=== PATIENT | female | born 1980 | race African-American/Black ===

== ENCOUNTER 2017-07-09 17:00 | Observation (INO) | payer MEDICAID ==
[~2017-07-09] VITALS: Ht 170.2 cm; Wt 97.5 kg
[~2017-07-09 17:00] MED LIST: LISI-283
[2017-07-09 18:25] LABS: Basophils # (auto) 0 uL; Basophils % (auto) 0.3 % (0.0-2.0); Eosinophils # (auto) 0.2 uL; Hematocrit 37.1 % (36.0-46.0); Hemoglobin 12.2 g/dL (12.2-16.2); Lymphocytes # (auto) 2.6 uL; Lymphocytes % (auto) 22.8 % (10.0-50.0); Mean Corpuscular Hgb Conc. 32.8 g/dL (32.0-36.0); Mean Corpuscular Volume 79.2 fL (80.0-100.0); Mean Platelet Volume 9.1 fL (6.9-10.8); Monocytes # (auto) 0.8 uL; Monocytes % (auto) 6.9 % (0.0-12.0); Neutrophils # (auto) 7.8 uL; Platelet Count (auto) 217 10^3/uL (140-450); Red Cell Distribution Width 16.1 % (11.8-14.3); White Blood Cell 11.4 10^3/uL (4.4-10.8)
[2017-07-09 18:37] LABS: INR 1.05 (0.9-1.15); Partial Thromboplastin Time 28.4 sec (22.64-33.71); Prothrombin Time 11.4 sec (9.37-12.3)
[2017-07-09 18:47] LABS: Urine Bilirubin Negative (Negative); Urine Blood Negative /uL (Negative); Urine Color Yellow (Yellow); Urine Glucose Normal (Normal); Urine Hyaline Cast FEW /lpf (0 - 2); Urine Ketone Negative (Negative); Urine Mucus FEW (None Seen); Urine Nitrite Negative (Negative); Urine RBC 1 /hpf (0 - 4); Urine Squamous Epithelial Cell FEW /hpf (<5)
[2017-07-09 18:50] LABS: Albumin 3.7 g/dL (3.4-5.0); Alkaline Phosphatase 97 U/L (45-117); Anion Gap 8 (5-15); Aspartate Aminotransferase < 3 U/L (15-37); BUN/Creatinine Ratio 21.6; Bilirubin, Total 0.3 mg/dL (0.2-1.0); Blood Urea Nitrogen 16 mg/dL (7-18); Calcium 8.3 mg/dL (8.5-10.1); Carbon Dioxide 22 mmol/L (21-32); Chloride 110 mmol/L (98-107); GFR African American 116 mL/min; GFR Non-African American 95 mL/min; Glucose 106 mg/dL (74-106); Magnesium 1.9 mg/dL (1.6-2.6); Potassium 3.7 mmol/L (3.5-5.1); Sodium 140 mmol/L (136-145); Total Protein 7.5 g/dL (6.4-8.2)
[2017-07-09] MEDS ORDERED: ASPirin-EC 81 mg tab PO ONE ×2 (19:15→19:37)
[2017-07-09] MEDS ORDERED: KETOROLAC TROMETH 30 MG/ML 1ML VIAL IV ONE (19:15)
[2017-07-09] MEDS ORDERED: cloNIDine HCL 0.1 MG TAB ONE (21:56)
[2017-07-09] MEDS ORDERED: cloNIDine HCL 0.1 MG TAB PO ONE (22:15)
[2017-07-09 22:26] VITALS: BP 153/102
== END 2017-07-09 23:10 | disposition home or self-care (01) | DRG 203 ==
LOC: ER 17:00 → OVERFLOW 19:18 → ER 23:10
PROVIDERS: ADMIT Family Medicine; ATTEND Family Medicine
DX: R07.89 Other chest pain (principal); F17.210 Nicotine dependence, cigarettes, uncomplicated; Z82.3 Family history of stroke; Z82.49 Family history of ischemic heart disease and other diseases of the circulatory system; Z83.3 Family history of diabetes mellitus
CPT/HCPCS: 36415; 71020; 80053; 81001; 83735; 84443; 84484; 85025; 85379; 85610; 85730; 93005; 96374; 99285; G0378; J1885

== ENCOUNTER 2019-05-27 23:58 | Emergency (ER) | payer MEDICAID ==
[~2019-05-27] VITALS: Ht 170.2 cm; Wt 108.5 kg
[2019-05-28 00:23] LABS: Urine WBC None Seen /hpf (0 - 5)
[2019-05-28] MEDS ORDERED: NIFEdipine 10 MG CAP PO ONE (00:30)
[2019-05-28 00:37] LABS: Basophils # (auto) 0 uL; Eosinophils # (auto) 0.2 uL; Eosinophils % (auto) 1.7 % (0.0-7.0); Monocytes # (auto) 0.7 uL; Neutrophils # (auto) 7.6 uL; Red Blood Cells 4.77 10^6/uL (4.0-5.20)
[2019-05-28 00:39] LABS: Basophils % (auto) 0.1 % (0.0-2.0); Hematocrit 37.9 % (36.0-46.0); Hemoglobin 12.1 g/dL (12.2-16.2); Lymphocytes # (auto) 3.2 uL; Lymphocytes % (auto) 27.3 % (10.0-50.0); Mean Corpuscular Hemoglobin 25.4 pg (28.0-32.0); Mean Corpuscular Volume 79.5 fL (80.0-100.0); Monocytes % (auto) 6.2 % (0.0-12.0); Neutrophils % (auto) 64.7 % (37.0-80.0); Nucleated Red Blood Cells % 0.1 %; Platelet Count (auto) 260 10^3/uL (140-450); Red Cell Distribution Width 15.2 % (11.8-14.3); White Blood Cell 11.7 10^3/uL (4.4-10.8)
[2019-05-28 00:42] LABS: Urine Bacteria FEW /hpf (None Seen); Urine Blood Negative /uL (Negative); Urine Specific Gravity 1.019 (1.001-1.035)
[2019-05-28 00:57] LABS: Albumin 3.4 g/dL (3.4-5.0); Anion Gap 5 (5-15); BUN/Creatinine Ratio 10.5; Blood Urea Nitrogen 9 mg/dL (7-18); Calcium 8.3 mg/dL (8.5-10.1); Carbon Dioxide 28 mmol/L (21-32); Chloride 107 mmol/L (98-107); GFR African American 96 mL/min; GFR Non-African American 79 mL/min; Glucose 134 mg/dL (74-106); Potassium 3.2 mmol/L (3.5-5.1); Sodium 140 mmol/L (136-145)
[2019-05-28 01:05] LABS: Alanine Aminotransferase 15 U/L (13-56); Alkaline Phosphatase 126 U/L (45-117); Aspartate Aminotransferase < 3 U/L (15-37); Bilirubin, Total 0.2 mg/dL (0.2-1.0); Total Protein 7.3 g/dL (6.4-8.2)
[2019-05-28 02:19] VITALS: BP 156/91
== END 2019-05-28 03:34 | disposition left against medical advice (07) ==
LOC: ER 05-28
DX: R07.89 Other chest pain (principal); R06.02 Shortness of breath; Z53.21 Procedure and treatment not carried out due to patient leaving prior to being seen by health care provider
CPT/HCPCS: 36415; 71046; 80053; 81001; 83735; 84484; 85025

== ENCOUNTER 2023-03-23 01:40 | Emergency (ER) | payer MEDICAID ==
[~2023-03-23] VITALS: Ht 170.2 cm; Wt 99.1 kg
[2023-03-23 02:30] VITALS: PULSE 74; RESP 17; TEMP 98.4; O2SAT 99
[2023-03-23] MEDS ORDERED: LABETALOL HCL 5 MG/ML 4ML SYRINGE IV ONE ×2 (02:45→03:30)
[2023-03-23] MEDS ORDERED: hydrALAZINE HCL 20 MG/ML VL IV ONE ×2 (04:00→04:45)
[2023-03-23] MEDS ORDERED: AMLO1TAB23 PO (05:20)
[2023-03-23 05:35] VITALS: BP 179/91; PULSE 79; RESP 14; O2SAT 99
== END 2023-03-23 05:37 | disposition home or self-care (01) ==
LOC: ER 01:40
DX: I10 Essential (primary) hypertension (principal); R42 Dizziness and giddiness; F17.210 Nicotine dependence, cigarettes, uncomplicated; Z79.899 Other long term (current) drug therapy; Z88.2 Allergy status to sulfonamides
CPT/HCPCS: 93005; 96374; 96375; 96376; 99284; J0360; J3490

== ENCOUNTER 2023-05-26 16:15 | Emergency (ER) | payer MEDICAID ==
[~2023-05-26] VITALS: Ht 170.2 cm; Wt 110.0 kg
[~2023-05-26 16:15] MED LIST changes: +AMLO1TAB23 PO
[2023-05-26] MEDS ORDERED: HYDROcodone-ACET 10/325MG TAB PO ONE (17:00)
[2023-05-26] MEDS ORDERED: cloNIDine HCL 0.1 MG TAB PO ONE (17:00)
[2023-05-26 20:38] VITALS: BP 211/119; PULSE 111; RESP 18; TEMP 98.3; O2SAT 99
== END 2023-05-26 23:00 | disposition left against medical advice (07) ==
LOC: ER 16:15
DX: M54.2 Cervicalgia (principal); M25.511 Pain in right shoulder; M25.512 Pain in left shoulder; Z53.21 Procedure and treatment not carried out due to patient leaving prior to being seen by health care provider; V89.2XXA Person injured in unspecified motor-vehicle accident, traffic, initial encounter; Y93.89 Activity, other specified; Y92.411 Interstate highway as the place of occurrence of the external cause; Y99.8 Other external cause status
CPT/HCPCS: 72040; 72070; 93005

== ENCOUNTER 2025-03-06 16:58 | Emergency (ER) | payer MEDICAID ==
[~2025-03-06] VITALS: Ht 170.2 cm; Wt 99.8 kg
[2025-03-06] MEDS: ONDANSETRON ODT 4 MG TAB PO ONE (17:15)
[2025-03-06] MEDS: HYDROcodone-ACET 10/325MG TAB PO ONE (17:15)
--- NOTE | 2025-03-06 17:56 | ED.PDOC ---
GI ASSESSMENT HPI Comments This is a 44 year old female presenting to the ED with chief complaint of abdominal pain. Patient reports that she has been experiencing lower abdominal cramping for the past 2 days since starting her menses this month. Patient relays that her pain is worse than her usual period cramps this time. Patient denies any N/V/D, fever, chills, dysuria, hematuria, or flank pain. Vital signs were stable Chief Complaint: Abdominal Pain Time Seen by MD: 17:51 Primary Care Provider: CURT Reviewed Notes: Nurses Notes, Medications, Allergies Allergies: Uncoded Allergies: SULFA (Allergy, Unknown, 03/23/23) Home Meds Active Scripts Amlodipine Besylate (Amlodipine Besylate) 10 Mg Tab, 1 TAB PO DAILY, #30 TAB 5 Refills Prov:SWATHI KRUEGER DO 03/23/23 Reported Medications Lisinopril & Hydrochlorothiazi (Lisinopril/Hydrochlorothi) 1 Tab Tab, DAILY 02/16/12 Information Source: Patient Mode of Arrival: Ambulatory Timing: Days Duration: Since onset Prehospital treatment: None Quality: Sharp Vomitus: None Stool: Normal Severity: Moderate Recent: None Recent Hx of: Other (Patient is currently on her menses) Pain Location: Suprapubic Modifying Factors: Nothing Associated sign and symptoms: Abdominal Pain Past Medical History PAST MEDICAL HISTORY: Anxiety, HTN 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 Hx Family History Family History: No family hx of DM, No family hx of HTN, No family hx ofElver asif, No family hx of Stroke Social History Smoker: Cigarettes, Less Than 1 Pack/Day Alcohol: Denies ETOH Use Drugs: Denies Drug Use Lives In: Home Constitutional: denies: chills, diaphoresis, fatigue, fever, malaise, sweats, weakness, others EENTM: denies: blurred vision, double vision, ear bleeding, ear discharge, ear drainage, ear pain, ear ringing, eye pain, eye redness, hearing loss, mouth pain, mouth swelling, nasal discharge, nose bleeding, nose congestion, nose pain, photophobia, tearing, throat pain, throat swelling, voice changes, others Respiratory: denies: cough, hemoptysis, orthopnea, SOB at rest, shortness of breath, SOB with excertion, stridor, wheezing, others Cardiovascular: denies: chest pain, dizzy spells, diaphoresis, Dyspnea on exertion, edema, irregular heart beat, left arm pain, lightheadedness, palpitations, PND, syncope, others Gastrointestinal: reports: abdominal pain; denies: abdomen distended, blood streaked bowels, constipated, diarrhea, dysphagia, difficulty swallowing, hematemesis, melena, nausea, poor appetite, poor fluid intake, rectal bleeding, rectal pain, vomiting, others Genitourinary: denies: abnormal vagina bleeding, burning, dyspareunia, dysuria, flank pain, frequency, hematuria, incontinence, pain, , vagina discharge, urgency, others Neurological: denies: dizziness, fainting, headache, left sided numbness, left sided weakness, numbness, paresthesia, pre-existing deficit, right sided numbness, right sided weakness, seizure, speech problems, tingling, tremors, weakness, others Musculoskeletal: denies: back pain, gout, joint pain, joint swelling, muscle pain, muscle stiffness, neck pain, others Integumetry: denies: bruises, change in color, change in hair/nails, dryness, laceration, lesions, lumps, rash, wounds, others Allergic/Immunocompromised: denies: Difficulty Healing, Frequent Infections, Hives, Itching, others Hematologic/Lymphatic: denies: anemia, blood clots, easy bleeding, easy bruising, swollen glands, others Endocrine: denies: excessive hunger, excessive sweating, excessive thirst, excessive urination, flushing, intolerance to cold, intolerance to heat, unexplained weight gain, unexplained weight loss, others Psychiatric: denies: anxiety, bipolar disorder, depression, hopeless, panic disorder, schizophrenia, sleepless, suicidal, others All Other Systems: Reviewed and Negative Physical Exam General Appearance: Moderate Distress (Moderate distress due to bilateral pelvic pain concerns.), Normal HEENT: Normal ENT Inspection, Pharynx Normal, TMs Normal Neck: Full Range of Motion, Non-Tender, Normal, Normal Inspection Respiratory: Chest Non-Tender, Lungs Clear, No Accessory Muscle Use, No Respiratory Distress, Normal Breath Sounds Cardiovascular: No Edema, No JVD, No Murmur, No Gallop, Normal Peripheral Pulses, Regular Rate/Rhythm Breast Exam: Deferred Gastrointestinal: Other (Diffuse bilateral lower abdomen/pelvic tenderness to palpation throughout. Difficult to assess due to body habitus. No pulsatile masses. No signs of trauma.) Genitalia: Deferred Pelvic: Deferred Rectal: Deferred Extremities: No calf tenderness, Normal capillary refill, Normal inspection, Normal range of motion, Non-tender, No pedal edema Neurologic: Alert, No Motor Deficits, Normal Affect, Normal Mood, No Sensory Deficits Cerebellar Function: Normal Reflexes: Normal Skin: Dry, Normal Color, Warm Lymphatic: No Adenopathy Was a procedure done? Was a procedure done?: No GI differential Dx Differential Diagnosis: Other (UTI, menses, uterine fibroid, ovarian cyst, constipation) X-Ray, Labs, Meds, VS Vital Signs Date Time Temp Pulse Resp B/P (MAP) Pulse Ox O2 Delivery O2 Flow Rate FiO2 03/06/25 20:04 98.2 77 17 158/90 (112) 100 98.2 03/06/25 20:00 158/93 03/06/25 17:36 97.5 89 16 205/109 (141) 97 97.5 03/06/25 17:36 89 17 03/06/25 17:15 205/109 03/06/25 17:00 97.8 106 18 172/117 100 97.8 Lab Test 03/06/25 17:44 03/06/25 17:15 Range/Units White Blood Count 12.9 H 4.4-10.8 10^3/uL Red Blood Count 4.96 4.0-5.20 10^6/uL Hemoglobin 12.2 12.2-16.2 g/dL Hematocrit 38.4 36.0-46.0 % Mean Corpuscular Volume 77.4 L 80.0-100.0 fL Mean Corpuscular Hemoglobin 24.7 L 28.0-32.0 pg Mean Corpuscular Hemoglobin Concent 31.9 L 32.0-36.0 g/dL Red Cell Distribution Width 17.1 H 11.8-14.3 % Platelet Count 319 140-450 10^3/uL Mean Platelet Volume 8.9 6.9-10.8 fL Neutrophils (%) (Auto) 72.8 37.0-80.0 % Lymphocytes (%) (Auto) 19.0 10.0-50.0 % Monocytes (%) (Auto) 6.8 0.0-12.0 % Eosinophils (%) (Auto) 0.9 0.0-7.0 % Basophils (%) (Auto) 0.5 0.0-2.0 % Neutrophils # (Auto) 9.4 H 1.6-8.6 10 ^3/uL Lymphocytes # (Auto) 2.4 0.4-5.4 10 ^3/uL Monocytes # (Auto) 0.9 0-1.3 10 ^3/uL Eosinophils # (Auto) 0.1 0-0.8 10 ^3/uL Basophils # (Auto) 0.1 0-0.2 10 ^3/uL Nucleated Red Blood Cells 0.0 % Sodium Level 144 136-145 mmol/L Potassium Level 3.5 3.5-5.1 mmol/L Chloride Level 110 H 98-107 mmol/L Carbon Dioxide Level 26 20-31 mmol/L Anion Gap 8 5-15 Blood Urea Nitrogen 8 L 9-23 mg/dL Creatinine 0.96 0.550-1.02 mg/dL Glomerular Filtration Rate Calc 76 >90 mL/min BUN/Creatinine Ratio 8.3 L 10.0-20.0 Serum Glucose 114 H 74-106 mg/dL Calcium Level 8.8 8.7-10.4 mg/dL Urine Color Yellow Yellow Urine Clarity Clear Clear Urine pH 5.5 5.0-9.0 Urine Specific Cunningham 1.030 1.001-1.035 Urine Protein Trace H Negative Urine Ketones Trace Negative Urine Blood 3+ H Negative /uL Urine Nitrite Negative Negative Urine Bilirubin Negative Negative Urine Urobilinogen 6 Negative mg/dL Urine Leukocyte Esterase Negative Negative /uL Urine RBC 160 0 - 4 /hpf Urine Microscopic WBC 5 0-5 /HPF Urine Squamous Epithelial Cells Few <5 /hpf Urine Amorphous Crystals Few None Seen /hpf Urine Bacteria None seen None Seen /hpf Urine Mucus Few None Seen Urine Glucose Normal Normal mg/dL Current Medications Medications (Trade) Dose Ordered Sig/Jeremie Route Start Time Stop Time Status Last Admin Acetaminophen/ Hydrocodone Bitart ([place] 10/325MG Tab) 1 tab ONCE ONCE PO 03/06/25 17:15 03/06/25 17:16 DC 03/06/25 17:15 Ondansetron HCl (Zofran Po) 4 mg ONCE ONCE PO 03/06/25 17:15 03/06/25 17:16 DC 03/06/25 17:15 Clonidine HCl (Catapres Tablet) 0.2 mg ONCE ONCE PO 03/06/25 17:15 03/06/25 17:16 DC 03/06/25 17:15 X-Ray, Labs, Meds, VS Comment All studies performed in the ED were evaluated by me personally. Serum studies and urinalysis were unremarkable for any systemic concerns. Ultrasound of her pelvis revealed a adenomyosis. Additionally, a uterine fibroid was noted. Patient was given a copy of her ultrasound report to follow up with her tar processing technician for continued evaluation and management. Pain medication as needed. Time of 1ST Reevaluation: 22:10 Reevaluation 1ST: Improved Consultation: PCP, materials buyer Patient Education/Counseling: Diagnosis, Treatment Family Education/Counseling: Diagnosis, Treatment, No Family Present SEPSIS Sepsis Screen Date sepsis recognized/suspect: Mar 06, 2025 Time Sepsis recognized/suspect: 1701 Recent Procedure: No On Antibiotic Therapy: No Respiratory Rate >20: No Heart Rate >90: Yes Temp<36 C (96.8 F) or >38.3 C: No SBP <90 or MAP <65 mmHG: No New Acute Mental Status Change: No Is the patient on CPAP, BIPAP,: No Physician Orders Pelvic (03/06/25 17:12) Transvaginal Us Non Ob (03/06/25 ) Vital Signs Date Time Temp Pulse Resp B/P (MAP) Pulse Ox O2 Delivery O2 Flow Rate FiO2 03/06/25 20:04 98.2 77 17 158/90 (112) 100 98.2 03/06/25 20:00 158/93 03/06/25 17:36 97.5 89 16 205/109 (141) 97 97.5 03/06/25 17:36 89 17 03/06/25 17:15 205/109 03/06/25 17:00 97.8 106 18 172/117 100 97.8 Laboratory Tests Test 03/06/25 17:44 White Blood Count 12.9 10^3/uL (4.4-10.8) H Medications Medications Dose Ordered Sig/Jeremie Route Start Time Stop Time Status Last Admin Dose Admin Acetaminophen/ Hydrocodone Bitart 1 tab ONCE ONCE PO 03/06/25 17:15 03/06/25 17:16 DC 03/06/25 17:15 Clonidine HCl 0.2 mg ONCE ONCE PO 03/06/25 17:15 03/06/25 17:16 DC 03/06/25 17:15 Ondansetron HCl 4 mg ONCE ONCE PO 03/06/25 17:15 03/06/25 17:16 DC 03/06/25 17:15 Departure 1 Departure Time of Disposition: 22:10 Impression: Primary Impression: Adenomyosis of uterus Additional Impression: Uterine fibroid Disposition: HOME / SELF CARE / HOMELESS Condition: Stable Additional Instructions: Advised patient utilize pain medication as needed and additionally, patient should follow up with tar processing technician for conversation is related to today's findings. e-Prescriptions Hydrocodone-Acetaminophen (Hydrocodone Bitartrate/AC 5-325 mg) 1 Tab Tab 1 TAB PO Q6HP PRN, #12 TAB Prov: MAKAYLA FRY PAC 03/06/25 Ibuprofen Micronized (Ibuprofen) 800 Mg Tab 800 MG PO Q8HP PRN, #20 TAB Prov: MAKAYLA FRY PAC 03/06/25 Discharged With: Self, Friend Critical Care Note Critical Care Time?: No Stability Stability form required: No Heart Score Heart Score: Heart Score Response (Comments) Value History N/A 0 EKG N/A 0 Age N/A 0 Risk Factors N/A 0 Troponin N/A 0 Total 0 I personally scribed for MAKAYLA FRY PAC ([email or web address]) on 03/06/25 at 17:56. Electronically submitted by Giancarlo Yao ([email or web address]). MAKAYLA FRY PAC Mar 06, 2025 17:56
[2025-03-06 17:58] LABS: Hematocrit 38.4 % (36.0-46.0); Hemoglobin 12.2 g/dL (12.2-16.2); Mean Corpuscular Hemoglobin 24.7 pg (28.0-32.0); Mean Corpuscular Volume 77.4 fL (80.0-100.0); Nucleated Red Blood Cells % 0.0 %
[2025-03-06 18:07] LABS: Urine Amorphous Crystal FEW /hpf (None Seen); Urine Protein, UAD TRACE (Negative)
[2025-03-06 18:09] LABS: Potassium 3.5 mmol/L (3.5-5.1); Sodium 144 mmol/L (136-145)
[2025-03-06 18:10] LABS: Anion Gap 8 (5-15); Calcium 8.8 mg/dL (8.7-10.4); Carbon Dioxide 26 mmol/L (20-31)
[2025-03-06 18:15] LABS: BUN/Creatinine Ratio 8.3 (10.0-20.0)
[2025-03-06 18:18] LABS: Blood Urea Nitrogen 8 mg/dL (9-23); Chloride 110 mmol/L (98-107); Glucose 114 mg/dL (74-106)
--- NOTE | 2025-03-06 18:58 | DVH ---
ULTRASOUND OF THE PELVIS (NON-OB) FEMALE INDICATION: Bilateral pelvic pain. History of heavy menses. History of . . LMP 2024. COMPARISON: None TECHNIQUE AND FINDINGS: Transabdominal Ultrasound: Transabdominal ultrasound examination was performed. Endovaginal Ultrasound: Endovaginal ultrasound was performed for improved visualization of pelvic str uctures. UTERUS: The uterus measures 8.7 x 5.2 x 4.3 cm. No focal uterine abnormality is seen. The endometria l stripe is 5 mm in thickness, within normal limits. The uterus demonstrates coarse echotexture whic h can be seen with adenomyosis. There is a 1.6 x 1.7 x 1.3 cm intramural fibroid in the anterior mid uterine body. RIGHT OVARY: The right ovary measures 2.9 x 2.4 x 1.6 cm. The right ovary is normal in appearance wit h expected Doppler flow. There is no evidence of abnormal adnexal mass. LEFT OVARY: The left ovary measures 2.5 x 2.4 x 1.9 cm. The left ovary is normal in appearance with expected Doppler flow. There is no evidence of abnormal adnexal mass. CUL de SAC: There is trace free fluid in the cul-de-sac. IMPRESSION: Imaging findings suggestive of adenomyosis. This can be further evaluated with outpatient uterus prot ocol pelvic MRI without and with contrast. A single intramural uterine fibroid is identified in the anterior mid uterine body measuring 1.7 cm. COMMENT: Both transabdominal ultrasound and endovaginal ultrasound were performed; the above impressi on reflects the composite impression from these two studies. No additional comment.
[2025-03-06] MEDS ORDERED: IBUP-1455 PO (22:11)
[2025-03-06] MEDS ORDERED: HYDR-4902 PO (22:11)
[2025-03-06 23:20] VITALS: BP 155/97; PULSE 79; RESP 16; TEMP 98.2; O2SAT 96
== END 2025-03-06 23:20 | disposition home or self-care (01) ==
LOC: ER 16:58
DX: N80.03 Adenomyosis of the uterus (principal); D25.1 Intramural leiomyoma of uterus; F17.210 Nicotine dependence, cigarettes, uncomplicated; I10 Essential (primary) hypertension; F41.9 Anxiety disorder, unspecified; Z98.890 Other specified postprocedural states; Z79.899 Other long term (current) drug therapy; Z88.2 Allergy status to sulfonamides
CPT/HCPCS: 36415; 76830; 76856; 80048; 81001; 85025; 99285; Q0162